=== PATIENT | female | born 1940 | race Caucasian/White ===

== ENCOUNTER 2016-06-11 17:18 | Emergency (ER) | payer BC, MEDICARE ==
--- NOTE | 2016-06-16 07:21 | ER ---
ADMIT: 06/11/2016 RM/LOC: ER [facility] MR#: [id number] [address] [id number] [address] [address] [place] [address] Emergency Room Report SEX: F AGE: 76 : 1940 DATE: 06/11/2016 HISTORY OF PRESENT ILLNESS: The patient is a 76-year-old female, who presents to the emergency room, complaining of a high blood pressure. She has been checking her blood pressure for over 3 days now, at random hours and she is right in the down. The average here is 150/80. She has been taking amlodipine. She called Dr. Pena 2 days ago and got some advice to take the amlodipine in the morning and in the evening. She takes 10 mg a day now instead of 5. She also called the office today and got clonidine and was advised to take the clonidine if her blood pressure was above 160. Well, she has been talking to several people. 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 Her says that when she talks to her daughter, she gets a little anxious about her health and blood pressure luis rockets and she ends up getting upset about it. So today at 0457 hours, her blood pressure was 193/90 with pulse of 109. says that is exactly the same time that she finished talking to her daughter over the phone regarding her health and her blood pressure medications that she is advised. She does have a history of anxiety and I think this has allowed to play in her situation right now. She denies any chest pain. She denies any shortness of breath. She says she feels it is not a headache but she feels like floating on the space and she just got her eyeglasses tuned up. The prescription did change and she has macular degeneration, so she says that all these things had effect on her health that she is pretty concerned about her blood pressure because too many people have come to her and advised her against not taking medication, so at this point after examination, I just do not see any extra tests that wanted to do. She feels comfortable. Her blood pressure as we are talking is coming down. Upon examination and physical assessment, her blood pressure is 157/73 with pulse of 78 and O2 sats of 97%. She is pretty comfortable, at bedside. We are going to go ahead and let her go. I am not adding any medication except reiterating the fact that she needs to take the dose of clonidine and Norvasc that was advised per Dr. Pena. She is to stop the steroids, and I do not want her touching the blood pressure cuff just at any time. It is noted to be specific time of the day and only at that time, she gets too anxious when the blood pressure is luis rocket. CLINICAL IMPRESSION: Chronic hypertension. Continue medications, follow up with Dr. Pena as per your appointment on Friday. TEREZA Adams / Ovidio Butler MD / modl JOB #: [id number] CC: Ovidio Butler MD, Attending Physician Loretta Pena MD, Family Physician
== END 2016-06-11 18:15 | disposition home or self-care (01) ==
LOC: ER 17:18
DX: I10 Essential (primary) hypertension (principal); Z79.899 Other long term (current) drug therapy